=== PATIENT | female | born 1950 | race Two or more races ===

== ENCOUNTER 2018-02-17 11:38 | Outpatient (CLI) | payer OTHER | END 2018-02-17 11:49 | disposition home or self-care (01) | LOC: SONOGRAMA 11:38 | DX: N60.11 Diffuse cystic mastopathy of right breast (principal); N60.12 Diffuse cystic mastopathy of left breast; N63.21 Unspecified lump in the left breast, upper outer quadrant ==

== ENCOUNTER 2022-11-02 10:31 | Inpatient (IN) | payer OTHER ==
[~2022-11-02] VITALS: Ht 157.5 cm; Wt 68.9 kg
[2022-11-03] MEDS ORDERED: SIMVASTATIN40 MG PO (08:38)
[2022-11-03] MEDS ORDERED: LOSARTAN-HCTZ1 EAC2 PO (08:39)
[2022-11-03] MEDS ORDERED: CALCIUM PO (08:41)
[2022-11-03] MEDS ORDERED: VITAMIN D310 MCG/1 M PO (08:41)
[2022-11-10] MEDS ORDERED: BACTRIM DS TAB1 EACH PO (06:30)
[2022-11-10] MEDS ORDERED: XARELTO10 MG PO (06:30)
[2022-11-10] MEDS ORDERED: OXYC1TAB9 PO (06:30)
[2022-11-10] MEDS ORDERED: INTEGRA PLUS C1 EACH PO (06:30)
== END 2022-11-10 14:22 | DRG 470 ==
LOC: SURH 11-08 07:00 → O/R 11-08 07:02 → SURH 11-08 07:02
PROVIDERS: ADMIT Orthopaedic Surgery Sports Medicine; ATTEND Orthopaedic Surgery Sports Medicine
PROC: 0SRC0JZ Replacement of Right Knee Joint with Synthetic Substitute, Open Approach (ICD-10-PCS; principal; 2022-11-08 07:00)
DX: M17.11 Unilateral primary osteoarthritis, right knee (principal); I10 Essential (primary) hypertension